=== PATIENT | male | born 1960 | race Caucasian/White ===

== ENCOUNTER 2016-09-17 11:32 | Emergency (ER) | payer MEDICAID ==
[2016-09-17 11:46] VITALS: BP 152/94
--- NOTE | 2016-09-17 12:55 | UC ---
HPI Wound/Suture Re-check - HPI Summary HPI Summary: Noticed itchy bump on R hip yesterday, pt is very concerned about a tick bite/ lyme. [place], did not see or pull off a tick. Feels chills today. - History Of Current Complaint Chief Complaint: Antonio Stated Complaint: BUG BITE Time Seen by Provider: 09/17/16 12:44 Hx Obtained From: Patient Onset/Duration: Sudden Onset, Lasting Hours Severity: Mild - Allergies/Home Medications Allergies/Adverse Reactions: Allergies Allergy/AdvReac Type Severity Reaction Status Date / Time Penicillins Allergy Unknown Verified 03/26/15 11:05 Reaction Details PMH/Surg Hx/FS Hx/Imm Hx Previously Healthy: Yes - Surgical History Surgical History: Yes Surgery Procedure, Year, and Place: [facility] - Family History Known Family History: Positive: Hypertension - Social History Alcohol Use: None Substance Use Type: None Smoking Status (MU): Former Smoker Review of Systems Constitutional: Chills Skin: Other - R hip bump Eyes: Negative ENT: Negative Respiratory: Negative Cardiovascular: Negative Gastrointestinal: Negative Genitourinary: Negative Motor: Negative Neurovascular: Negative Musculoskeletal: Negative Neurological: Negative Psychological: Negative All Other Systems Reviewed And Are Negative: Yes Physical Exam Triage Information Reviewed: Yes Appearance: Well-Appearing, No Pain Distress, Well-Nourished Vital Signs: Initial Vital Signs Temp 98 F 09/17/16 11:42 Pulse 76 09/17/16 11:42 Resp 16 09/17/16 11:42 BP 152/94 09/17/16 11:42 Pulse Ox 100 09/17/16 11:42 Vital Signs Reviewed: Yes Eye Exam: Normal Eyes: Positive: Conjunctiva Clear ENT Exam: Normal ENT: Positive: Normal ENT inspection, Hearing grossly normal, Pharynx normal, TMs normal Dental Exam: Normal Neck exam: Normal Neck: Positive: Supple Respiratory Exam: Normal Respiratory: Positive: Chest non-tender, Lungs clear, Normal breath sounds, No respiratory distress, No accessory muscle use Cardiovascular Exam: Normal Cardiovascular: Positive: RRR, No Murmur Musculoskeletal Exam: Normal Neurological Exam: Normal Neurological: Positive: Alert Psychological Exam: Normal Skin Exam: Other - 1.5cm raised itchy wheal R hip. No streaking, drainage, erythema. Course/Dx - Differential Dx - Laceration/Wound Provider Diagnoses: insect bite R hip Discharge - Discharge Plan Condition: Stable Disposition: HOME Patient Education Materials: Insect Bite or Sting (ED) Referrals: Donta Moraes MD [Primary Care Provider] - Additional Instructions: Your spot is consistent with an insect bite such as a mosquito -- there is no concern for tick bite or lyme infections as long as it stays small and itchy. If you have marked increase in redness or other changes, please return here or go to your primary care provider.
== END 2016-09-17 13:00 | disposition home or self-care (01) ==
LOC: UCEAST 11:32
DX: S70.261A Insect bite (nonvenomous), right hip, initial encounter (principal); W57.XXXA Bitten or stung by nonvenomous insect and other nonvenomous arthropods, initial encounter; Y93.9 Activity, unspecified; Y92.9 Unspecified place or not applicable; Y99.9 Unspecified external cause status; Z87.891 Personal history of nicotine dependence
CPT/HCPCS: 99211; G0463

== ENCOUNTER 2017-06-16 14:45 | Emergency (ER) | payer OTHER ==
[2017-06-16 15:25] VITALS: BP 00/00
--- NOTE | 2017-06-16 16:03 | UC ---
Eye Complaint HPI - HPI Summary HPI Summary: Patient had a sudden onset of floaters in his left eye last night while dancing. Patient noticed today he's had decreased vision in his left eye. Patient to urgent care today for evaluation of retinal detachment. Patient denies pain or trauma - History of Current Complaint Chief Complaint: UCEye Stated Complaint: EYE COMPLAINT Time Seen by Provider: 06/16/17 15:43 Hx Obtained From: Patient Onset/Duration: Sudden Onset, Lasting Days - 1, Still Present Timing: Constant Severity Currently: None Pain Intensity: 0 Pain Scale Used: 0-10 Numeric Aggravating Factor(s): Nothing Alleviating Factor(s): Nothing Associated Signs And Symptoms: Positive: Vision Impairment Left - Allergies/Home Medications Allergies/Adverse Reactions: Allergies Allergy/AdvReac Type Severity Reaction Status Date / Time Penicillins Allergy Unknown Verified 06/16/17 15:25 Reaction Details Home Medications: Home Medications Ascorbic Acid TAB* [Vitamin C TAB*] 500 mg PO DAILY 06/16/17 [History Confirmed 06/16/17] PMH/Surg Hx/FS Hx/Imm Hx Previously Healthy: No Psychological History: Other Other Psychological History: insomnia - Surgical History Surgical History: Yes Surgery Procedure, Year, and Place: [facility] - Family History Known Family History: Positive: Hypertension - Social History Occupation: Employed Full-time Lives: With Family Alcohol Use: Occasionally Substance Use Type: Marijuana Substance Use Comment - Amount & Last Used: every 6 months or so Smoking Status (MU): Former Smoker Review of Systems Constitutional: Negative Skin: Negative Eyes: Blurred Vision - OS ENT: Negative Respiratory: Negative Cardiovascular: Negative Gastrointestinal: Negative Genitourinary: Negative Motor: Negative Neurovascular: Negative Musculoskeletal: Negative Neurological: Negative Psychological: Negative Is Patient Immunocompromised?: No All Other Systems Reviewed And Are Negative: Yes Physical Exam Triage Information Reviewed: Yes Appearance: Well-Appearing, No Pain Distress, Well-Nourished Vital Signs: Initial Vital Signs Temp 98.2 F 06/16/17 15:17 Pulse 70 06/16/17 15:17 Resp 18 06/16/17 15:17 BP 00/00 06/16/17 15:17 Pulse Ox 99 06/16/17 15:17 Vital Signs Reviewed: Yes Eye Exam: Normal Eyes: Positive: Conjunctiva Clear, Other: - Perrla, eomi, fundascopic examination WNL ENT Exam: Normal ENT: Positive: Normal ENT inspection, Hearing grossly normal. Negative: Nasal congestion, Trismus, Muffled voice, Hoarse voice Dental Exam: Normal Neck exam: Normal Neck: Positive: Supple, Nontender, No Lymphadenopathy Respiratory Exam: Normal Respiratory: Positive: No respiratory distress, No accessory muscle use Cardiovascular Exam: Normal Cardiovascular: Positive: Pulses Normal, Brisk Capillary Refill Musculoskeletal Exam: Normal Musculoskeletal: Positive: Strength Intact, ROM Intact, No Edema Neurological Exam: Normal Neurological: Positive: Alert, Muscle Tone Normal Psychological Exam: Normal Psychological: Positive: Normal Response To Family Skin Exam: Normal Eye Complaint Course/Dx - Course Course Of Treatment: Spoke with Dr. Flores . Plan will be for the patient to follow up at the doctor's office tomorrow June 17 at 11 AM patient is agreeable and can make the appointment - Differential Dx/Diagnosis Provider Diagnoses: Floaters OS Discharge - Sign-Out/Discharge Documenting (check all that apply): Discharge - Discharge Plan Condition: Stable Disposition: HOME Patient Education Materials: Blurred Vision (ED), Visual Floaters (ED) Referrals: Oli Sarmiento MD [Medical Doctor] - 06/17/17 11:00 am Additional Instructions: The custom van converter will meet you in his office tomorrow June 17 at 11: 00 AM. - Billing Disposition and Condition Condition: STABLE Disposition: HOME
== END 2017-06-16 16:30 | disposition home or self-care (01) ==
LOC: UCEAST 14:45
DX: H43.392 Other vitreous opacities, left eye (principal); Z88.0 Allergy status to penicillin; Z87.891 Personal history of nicotine dependence
CPT/HCPCS: 99211; G0463

== ENCOUNTER 2017-08-11 11:44 | Emergency (ER) | payer OTHER ==
[2017-08-11 11:56] VITALS: BP 140/72
--- NOTE | 2017-08-11 12:32 | UC ---
Srinivasa Juarez Angela, scribed for Malvin Snider MD on 08/11/17 at 1159 . General HPI - HPI Summary HPI Summary: This pt is a 57 y/o male presenting to [facility] c/o intermittent fevers for the last couple of days. 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 He states that for the last couple of months he has removed multiple ticks from his skin. Denies headache, neck pain, cough, SOB, chest pain, abdominal pain, nausea, vomiting, diarrhea, dysuria, and urinary frequency. Pt denies target lesions or any other complaints. Pt is concerned for Lyme's disease and would like to be tested due to his intermittent fevers. He would like the blood draw to be done today and he will follow up with his PCP (Dr. Moraes) next week. - History of Current Complaint Stated Complaint: FEVER Time Seen by Provider: 08/11/17 11:51 Hx Obtained From: Patient Onset/Duration: Lasting Days - 1, Still Present Timing: Constant Current Severity: None Pain Intensity: 0 Aggravating: nothing Alleviating: nothing Associated Signs & Symptoms: Positive: Fever, Other - NEG: dysuria, urinary frequency, neck pain. Negative: Abdominal Pain, Cough, Chest Pain, Diarrhea, Dysuria, Headache, Nausea, SOB, Vomiting - Allergy/Home Medications Allergies/Adverse Reactions: Allergies Allergy/AdvReac Type Severity Reaction Status Date / Time Penicillins Allergy Unknown Verified 08/11/17 11:49 Reaction Details PMH/Surg Hx/FS Hx/Imm Hx Other Endocrine History: DENIES: diabetes Other Cardiovascular History: DENIES: HTN Psychological History: Anxiety - Surgical History Surgical History: Yes Surgery Procedure, Year, and Place: [facility] - Family History Known Family History: Positive: Hypertension - Social History Alcohol Use: Rare Substance Use Type: None Substance Use Comment - Amount & Last Used: every 6 months or so Smoking Status (MU): Former Smoker Review of Systems Constitutional: Fever Skin: Negative Eyes: Negative ENT: Negative Respiratory: Negative Cardiovascular: Negative Gastrointestinal: Negative Genitourinary: Negative Motor: Negative Neurovascular: Negative Musculoskeletal: Myalgia Neurological: Negative Psychological: Negative Is Patient Immunocompromised?: No All Other Systems Reviewed And Are Negative: Yes Physical Exam - Summary Physical Exam Summary: VITAL SIGNS: Reviewed. GENERAL: Patient is a well-developed and nourished male who is lying comfortable in the stretcher. Patient is not in any acute respiratory distress. HEAD AND FACE: Normocephalic EYES: PERRLA, EOMI x 2. EARS: Hearing grossly intact. MOUTH: Oropharynx within normal limits. NECK: Supple, trachea is midline, no adenopathy, no JVD, no carotid bruit. CHEST: Symmetric, no tenderness at palpation LUNGS: Clear to auscultation bilaterally. No wheezing or crackles. CVS: Regular rate and rhythm, S1 and S2 present, no murmurs or gallops appreciated. ABDOMEN: Soft, non-tender. Bowel sounds are normal. No abdominal abnormal pulsations. EXTREMITIES: Full ROM in all major joints, no edema, no cyanosis or clubbing. NEURO: Alert and oriented x 3. No acute neurological deficits. Speech is normal and follows commands. SKIN: Dry and warm Triage Information Reviewed: Yes Vital Signs: Initial Vital Signs Temp 99.3 F 08/11/17 11:50 Pulse 74 08/11/17 11:50 Resp 18 08/11/17 11:50 BP 140/72 08/11/17 11:50 Pulse Ox 98 08/11/17 11:50 Vital Signs Reviewed: Yes Course/Dx - Course Course Of Treatment: This patient is a 57-year-old male who presents to the emergency room with only complaint of having intermittent fevers and body aches. He does not have any specific complaint. In the urgent care there is no fever. He accepted to do a routine blood work however he refused a urinalysis and a chest x-ray. He reports that he would follow with the primary care physician Dr. Moraes as this week for further workup and management. He reports that he wants a Lyme titer since the patient is exposed to ticks that he has removed from his primary multiple ticks in the past. The patient will be discharged home with follow-up PCP. The patient was found to have increased blood pressure in UC. The patient will follow up with PCP for better control of BP. Pt is concerned for Lyme's disease and would like to be tested due to his intermittent fevers. He would like the blood draw to be done today and he will follow up with his PCP (Dr. Moraes) sometime next week. - Differential Dx - Multi-Symptom Provider Diagnoses: Intermittent fever Discharge - Sign-Out/Discharge Documenting (check all that apply): Discharge/Admit/Transfer - Discharge Plan Condition: Stable Disposition: HOME Patient Education Materials: Fever in Adults (ED) Referrals: Donta Moraes MD [Primary Care Provider] - Additional Instructions: FOLLOW UP WITH YOUR PRIMARY CARE PROVIDER WITHIN ONE WEEK FOR HIGH BLOOD PRESSURE NOTED TODAY. RETURN TO URGENT CARE OR THE ED FOR ANY WORSENING OR NEW SYMPTOMS. - Billing Disposition and Condition Condition: STABLE Disposition: HOME The documentation as recorded by the Srinivasa koroma Angela accurately reflects the service I personally performed and the decisions made by Tylor smith Walter, MD.
[2017-08-11 13:57] LABS: ABS Basophils 0 10^3/ul (0-0.2); ABS Eosinophils 0.1 10^3/ul (0-0.6); ABS Lymphocytes 0.6 10^3/ul (1.0-4.8); ABS Monocytes 0.5 10^3/ul (0-0.8); ABS Neutrophils 3.2 10^3/ul (1.5-7.7); ABS Nucleated RBC 0 10^3/ul; Eosinophil % 1.2 % (0-6); Hematocrit 45 % (42-52); Hemoglobin 15.7 g/dl (14.0-18.0); Lymphocyte % 12.7 % (25-47); Mean Corpuscular HGB Conc 35 g/dl (31-36); Mean Corpuscular Hemoglobin 33 pg (27-31); Mean Corpuscular Volume 95 fL (80-94); Mean Platelet Volume 8.6 um3 (7.4-10.4); Nucleated Red Blood Cells % 0; Platelet Count 115 10^3/ul (150-450); Red Cell Distribution Width 13 % (10.5-15); White Blood Count 4.4 10^3/ul (3.5-10.8)
[2017-08-11 14:44] LABS: EGFR Non-African American 77.4 (>60)
--- NOTE | 2017-08-12 09:10 | UC ---
- Progress Note Progress Note: Follow up labs from August 11, 2017: Abnormals noted: Platelets: 115 Monocyte: 11.2 Glucose: 119 alt: 121 ast: 92 CRP: 25 Call patient to check on his fever. Lactate within normal limits. No lyme test result. Patient needs to follow up, as planned, with Dr. Moraes. His Lyme result is not back. There is evidence of abnormalities that Dr. Moraes can address. Go to ED for new symptoms, continued temperature; he would need further evaluation. Eitan Jo MD Discharge - Sign-Out/Discharge Documenting (check all that apply): Post-Discharge Follow Up - Discharge Plan Condition: Stable Disposition: HOME Patient Education Materials: Fever in Adults (ED) Referrals: Donta Moraes MD [Primary Care Provider] - Additional Instructions: FOLLOW UP WITH YOUR PRIMARY CARE PROVIDER WITHIN ONE WEEK FOR HIGH BLOOD PRESSURE NOTED TODAY. RETURN TO URGENT CARE OR THE ED FOR ANY WORSENING OR NEW SYMPTOMS. - Billing Disposition and Condition Condition: STABLE Disposition: HOME
== END 2017-08-11 12:57 | disposition home or self-care (01) ==
LOC: UCEAST 11:44
DX: R50.9 Fever, unspecified (principal); Z88.0 Allergy status to penicillin; F41.9 Anxiety disorder, unspecified; Z87.891 Personal history of nicotine dependence
CPT/HCPCS: 36415; 80053; 81003; 83605; 85025; 85652; 86140; 87040; 99211; G0463

== ENCOUNTER 2017-08-18 10:13 | Emergency (ER) | payer OTHER ==
--- NOTE | 2017-08-18 10:20 | UC ---
Skin Complaint HPI - HPI Summary HPI Summary: 57 y/o male presents to the urgent care c/o a tick bite last week on his left upper arm. He also removed multiple ticks from his cloths. Pt states last night he notice a target rash in his Rt upper arm and this morning he has another one in his back and chest. Pt reports he was seen last week here at the urgent care and requested a Lyme serology. They did blood work, but it seems Lyme serology was not done. Pt request today full ABX treatment. Pt states sweats, chill, and mild BARKER, but not fever, joint pains, palpitations, chest pain, abdominal pain, N/V/D. - History of Current Complaint Time Seen by Provider: 08/18/17 10:19 Stated Complaint: TICK BITE Hx Obtained From: Patient Onset/Duration: Gradual Onset, Lasting Days - 1 day, Still Present Skin Exposure Onset/Duration: Days Ago - 1 day Timing: Constant Onset Severity: Mild Current Severity: Mild Pain Intensity: 0 Pain Scale Used: 0-10 Numeric Location: Discrete - 2 target lesions in the RT upper arm, 1 in the chest and 1 in the back Character: Redness Aggravating Factor(s): Nothing Alleviating Factor(s): Nothing Associated Signs & Symptoms: Positive: Chills, Rash. Negative: Nausea, Vomiting , Numbness, Diaphoresis, Weakness, Fever, Drainage, Tenderness Related History: Possible Reaction to: Insect - Allergy/Home Medications Allergies/Adverse Reactions: Allergies Allergy/AdvReac Type Severity Reaction Status Date / Time Penicillins Allergy Unknown Verified 08/18/17 10:29 Reaction Details Home Medications: Home Medications Sertraline* [Zoloft*] 50 mg PO DAILY 08/18/17 [History Confirmed 08/18/17] Review of Systems Constitutional: Chills, Fatigue, Other - sweats Skin: Rash - target lesions in the Rt upper arm, chest and back Eyes: Negative ENT: Negative Respiratory: Negative Cardiovascular: Negative Gastrointestinal: Negative Genitourinary: Negative Motor: Negative Neurovascular: Negative Musculoskeletal: Negative Neurological: Headache - mild Psychological: Negative Is Patient Immunocompromised?: No All Other Systems Reviewed And Are Negative: Yes PMH/Surg Hx/FS Hx/Imm Hx Previously Healthy: Yes Endocrine History: Dyslipidemia - diet control Cardiovascular History: Hypertension - diet control - Surgical History Surgical History: Yes Surgery Procedure, Year, and Place: [facility] - Family History Known Family History: Positive: Hypertension - Social History Occupation: Employed Full-time Lives: With Family Alcohol Use: Rare Substance Use Type: None Substance Use Comment - Amount & Last Used: every 6 months or so Smoking Status (MU): Former Smoker Physical Exam - Summary Physical Exam Summary: Vital Signs Reviewed: Yes General: well developed, well nourished female sitting in the examining table w/ o any apparent distress. Eyes: Positive: Conjunctiva Clear - PERRLA, EOMI ENT: Positive: Normal ENT inspection, Hearing grossly normal, Pharynx normal, TMs normal Neck: Positive: Supple, Nontender, No Lymphadenopathy Respiratory: Positive: Chest nontender, Lungs clear, Normal breath sounds Cardiovascular: Positive: RRR, No Murmur, Pulses Normal Abdomen Description: Positive: Nontender, No Organomegaly, Soft. Negative: CVA Tenderness (R), CVA Tenderness (L) Bowel Sounds: Positive: Present Musculoskeletal: Positive: Strength Intact, ROM Intact, No Edema Neurological Exam: Normal Psychological Exam: Normal Skin: Positive: rashes - positive medial aspect or the Rt upper arm w/ 2 erythematous patches w/ a central clearance and classical bull's eye lesions, about 5cmx 6.0cm in size another in the chest and another in the back w/o central clearance. non tender to palpation. no swelling or drainage observed. Triage Information Reviewed: Yes Course/Dx - Course Course Of Treatment: 57 y/o male presents to the urgent care c/o a tick bite last week on his left upper arm. He also removed multiple ticks from his cloths. Pt states last night he notice a target rash in his Rt upper arm and this morning he has another one in his back and chest. Pt reports he was seen last week here at the urgent care and requested a Lyme serology. They did blood work, but it seems Lyme serology was not done. Pt request today full ABX treatment. Pt states sweats, chill, and mild BARKER, but not fever, joint pains, palpitations, chest pain, abdominal pain, N/V/D. Hx obtained. pt w/positive medial aspect or the Rt upper arm w/ 2 erythematous patches w/ a central clearance and classical bull's eye lesions, about 5cmx 6.0cm in size. another in the chest and another in the back w/o central clearance. non tender to palpation. no swelling or drainage observed on examination. Pt most likely with Lyme Disease. Lyme serology ordered. Pt will be notified of results. Pt Rx Doxycycline PO . Advised that there is to possibility the serology returns negative the first 2 weeks of exposure. However strongly advised to f/u with Dr Lund for further Tx. Pt's liver enzymen elevated and CPR. Pt denies Alohol comsumption or HX of hept C or B Strongly advisedt ot f/u w/ PCP for further management. Pt's BP is elevated today advised to decrease salt in diet, monitor BP and f/u with PCP for further management. Pt understood and agreed with plan of care. - Differential Diagnoses - Skin Complaint Differential Diagnoses: Abscess, Cellulitis, Contact Dermatitis, MRSA, Tick Born Illness, Urticaria - Diagnoses Provider Diagnoses: 1- Lyme disease. 2-Uncontrolled HTN Discharge - Sign-Out/Discharge Documenting (check all that apply): Discharge/Admit/Transfer - d/c home - Discharge Plan Condition: Stable Disposition: HOME Prescriptions: DOXYcycline CAP(*) [DOXYcycline 100MG CAP(*)] 100 mg PO BID #42 cap Patient Education Materials: Lyme Disease (ED), Low-Sodium Diet (ED) Referrals: Kevon BROWN,Parth Welch [Medical Doctor] - 1 Week Donta Moraes MD [Primary Care Provider] - 2 Days Additional Instructions: 1- Please take full course of antibiotic to avoid resistance. 2- Lyme Serology and blood work still pending. You will be notified of results 3- F/u with DR Lund in 1 week for further management in Lyme Disease 4- Your liver enzymes and CRP are elevated please f/u w/ your PCP in 2-3 days for further management. 5-Your BP is elevated today. please decrease salt in your diet, monitor BP and if it continues to be elevated please f/u with your PCP for further management - Billing Disposition and Condition Condition: STABLE Disposition: Home
[2017-08-18 11:01] VITALS: BP 140/78
== END 2017-08-18 11:06 | disposition home or self-care (01) ==
LOC: UCEAST 10:13
DX: A69.20 Lyme disease, unspecified (principal); I10 Essential (primary) hypertension; Z88.0 Allergy status to penicillin; E78.5 Hyperlipidemia, unspecified; Z82.49 Family history of ischemic heart disease and other diseases of the circulatory system; Z87.891 Personal history of nicotine dependence
CPT/HCPCS: 86617; 86618; 99211; G0463

== ENCOUNTER 2018-02-25 14:05 | Emergency (ER) | payer OTHER ==
--- NOTE | 2018-02-25 14:19 | UC ---
Bite Injury/Animal HPI - HPI Summary HPI Summary: 58 yo male presents with dog bite to left lower leg sustained on 02/22. He tells me that the dog has had vaccines in the past, but is out of date. He knows the dog and the owners. Pt contacted the health department and they are monitoring the dog per rabies protocol. Pt presents today for a wound check. Denies fever or chills. - History of Current Complaint Chief Complaint: UCBiteInjury Stated Complaint: ANIMAL BITE Time Seen by Provider: 02/25/18 14:18 Hx Obtained From: Patient Severity Currently: Mild Severity Initially: Mild Pain Intensity: 2 Pain Scale Used: 0-10 Numeric Onset/Duration: Sudden Onset Type of Bite: Animal Character: Puncture - Allergies/Home Medications Allergies/Adverse Reactions: Allergies Allergy/AdvReac Type Severity Reaction Status Date / Time Penicillins Allergy Unknown Verified 02/25/18 14:16 Reaction Details PMH/Surg Hx/FS Hx/Imm Hx Cardiovascular History: Hypertension Psychological History: Anxiety, Depression - Surgical History Surgical History: Yes Surgery Procedure, Year, and Place: [facility] - Family History Known Family History: Positive: Hypertension - Social History Occupation: Employed Full-time Lives: With Family Alcohol Use: Occasionally Substance Use Type: None Substance Use Comment - Amount & Last Used: every 6 months or so Smoking Status (MU): Former Smoker When Did the Patient Quit Smoking/Using Tobacco: 30 yrs Review of Systems All Other Systems Reviewed And Are Negative: Yes Constitutional: Positive: Negative Skin: Positive: Other - Dog bite left lower leg Respiratory: Positive: Negative Cardiovascular: Positive: Negative Musculoskeletal: Positive: Negative Neurological: Positive: Negative Psychological: Positive: Negative Physical Exam - Summary Physical Exam Summary: GENERAL: NAD. WDWN. No pain distress. SKIN: Left lower leg: Superficial horizontal linear abrasion at anterior aspect 2.5cm in length. One 2-3mm superficial puncture wound to the posterolateral aspect. Scant erythema. Scabbed over. NTTP, no drainage, warmth, streaking, or edema. NECK: Supple. Nontender. No lymphadenopathy. CHEST: No accessory muscle use. Breathing comfortably and in no distress. CV: Pulses intact. Cap refill <2seconds NEURO: Alert. PSYCH: Age appropriate behavior. Triage Information Reviewed: Yes Vital Signs: Initial Vital Signs Temp 98.5 F 02/25/18 14:11 Pulse 90 02/25/18 14:11 Resp 14 02/25/18 14:11 BP 164/137 02/25/18 14:11 Pulse Ox 100 02/25/18 14:11 Vital Signs: Temp Pulse Resp BP Pulse Ox 98.5 F 90 14 130/84 100 02/25/18 14:11 02/25/18 14:11 02/25/18 14:11 02/25/18 14:45 02/25/18 14:11 Vital Signs Reviewed: Yes Bite Injury Course/Dx - Course Course Of Treatment: tdap updated today. Pt prefers not to be on antibiotics at this time, which I feel is resonable given that his wounds appear to be healing very well without signs of underlying infection. Advised that if his wound worsens to be rechecked. Rechecked BP much improved - advised to f/u with PCP for elevated BP - Differential Dx/Diagnosis Provider Diagnosis: Dog bite of left lower leg Discharge - Sign-Out/Discharge Documenting (check all that apply): Patient Departure All imaging exams completed and their final reports reviewed: No Studies - Discharge Plan Condition: Stable Disposition: HOME Patient Education Materials: Animal Bite (ED) Referrals: Donta Moraes MD [Primary Care Provider] - Additional Instructions: If you develop a fever, shortness of breath, chest pain, new or worsening symptoms - please call your PCP or go to the ED. Your blood pressure was high at todays visit. Please see your primary provider within 4 weeks for recheck and re-evaluation. Your dog bite appears to be healing well. Please keep monitoring the area and if you develop any increased redness, pain, swelling, or drainage - please be rechecked - Billing Disposition and Condition Condition: STABLE Disposition: Home
[2018-02-25] MEDS ORDERED: Tetan/Diph/Pertus SYR(Tdap)* 0.5 ML SYR(BOOSTRIX) use SYR IM ONE (14:21)
[2018-02-25 14:54] VITALS: BP 130/84
== END 2018-02-25 15:00 | disposition home or self-care (01) ==
LOC: UCEAST 14:05
DX: Z51.89 Encounter for other specified aftercare (principal); S81.852D Open bite, left lower leg, subsequent encounter; W54.0XXD Bitten by dog, subsequent encounter; Z88.0 Allergy status to penicillin; I10 Essential (primary) hypertension; Z87.891 Personal history of nicotine dependence
CPT/HCPCS: 90471; 90715; 99211; G0463